=== PATIENT | female | born 1940 | race African-American/Black ===

== ENCOUNTER → 2018-04-15 | Outpatient (CLI) | payer OTHER ==
[~2018-04-15] MED LIST: ACTOS15 MG PO; ASPIRIN325 PO; CALCIUM500 MG PO; CLARITIN10 MG PO; COZAAR 50 MG TA50 M2 PO; FLONASE 0.05%50 MCG NASAL; GLUCOPHAGE XR500 MG PO; KELP150 MC1 PO; LANTUS SC; LANTUS SUBQ; LEVEMIR SUBQ; LISINOPRIL10 MG PO; LIVALO4 MG PO; MULTI-VITAMIN1 EAC1 PO; NORVASC 5 MG TAB5 MG PO; NORVASC10 MG PO; PLAVIX 75 MG TA75 M1 PO; RED YEAST RICE600 MG PO; SINGULAIR 10 MG10 M1 PO; ULTRAM 50MG TAB50 MG PO; VITAMIN D1000 UNI1 PO; [UNRECOGNIZED DRUG - OTHER]
== END ==
LOC: MRI 09:31
DX: S83.281A Other tear of lateral meniscus, current injury, right knee, initial encounter (principal); M25.461 Effusion, right knee; M71.21 Synovial cyst of popliteal space [Baker], right knee; G89.29 Other chronic pain; X58.XXXA Exposure to other specified factors, initial encounter; Y93.89 Activity, other specified; Y92.89 Other specified places as the place of occurrence of the external cause; Y99.8 Other external cause status

== ENCOUNTER 2019-05-30 23:50 | Emergency (ER) | payer OTHER ==
[~2019-05-30] VITALS: Ht 167.6 cm; Wt 78.0 kg
[2019-05-30 23:52] VITALS: BP 135/78
[2019-05-30] MEDS ORDERED: AMLODIPINE BESY10 MG PO (23:58)
[2019-05-30] MEDS ORDERED: LIVALO4 MG PO (23:59)
[2019-05-30] MEDS ORDERED: TRIGLIDE160 MG PO (23:59)
== END 2019-05-31 01:05 | disposition home or self-care (01) ==
LOC: ER 23:50
DX: I73.9 Peripheral vascular disease, unspecified (principal); R25.2 Cramp and spasm; I10 Essential (primary) hypertension; E11.9 Type 2 diabetes mellitus without complications; E78.5 Hyperlipidemia, unspecified; Z88.8 Allergy status to other drugs, medicaments and biological substances; Z79.899 Other long term (current) drug therapy; Z79.82 Long term (current) use of aspirin

== ENCOUNTER → 2019-10-05 | Outpatient (CLI) | payer OTHER ==
[~2019-10-05] MED LIST changes: +AMLODIPINE BESY10 MG PO; +TRIGLIDE160 MG PO
== END ==
LOC: SJCVCIMAG 09:37
PROVIDERS: ATTEND Nuclear Medicine Nuclear Cardiology
DX: I70.203 Unspecified atherosclerosis of native arteries of extremities, bilateral legs (principal); E11.51 Type 2 diabetes mellitus with diabetic peripheral angiopathy without gangrene; I25.119 Atherosclerotic heart disease of native coronary artery with unspecified angina pectoris; I10 Essential (primary) hypertension; E78.00 Pure hypercholesterolemia, unspecified

== ENCOUNTER → 2019-10-07 | Outpatient (CLI) | payer OTHER | LOC: SJCVCIMAG 07:38 | DX: I25.119 Atherosclerotic heart disease of native coronary artery with unspecified angina pectoris (principal); I10 Essential (primary) hypertension; E78.5 Hyperlipidemia, unspecified; I73.9 Peripheral vascular disease, unspecified; E11.9 Type 2 diabetes mellitus without complications; Z79.82 Long term (current) use of aspirin; Z79.899 Other long term (current) drug therapy ==

== ENCOUNTER → 2020-05-04 | Outpatient (CLI) | payer OTHER | LOC: SJCVCIMAG 08:36 | PROVIDERS: ATTEND Internal Medicine Cardiovascular Disease | DX: I65.23 Occlusion and stenosis of bilateral carotid arteries (principal); I70.203 Unspecified atherosclerosis of native arteries of extremities, bilateral legs; I10 Essential (primary) hypertension; E78.00 Pure hypercholesterolemia, unspecified; I77.9 Disorder of arteries and arterioles, unspecified; E11.9 Type 2 diabetes mellitus without complications; Z95.828 Presence of other vascular implants and grafts; Z79.899 Other long term (current) drug therapy ==

== ENCOUNTER → 2020-09-11 | Outpatient (CLI) | payer OTHER | LOC: CAT 09:02 | PROVIDERS: ATTEND Family Medicine | DX: R41.82 Altered mental status, unspecified (principal) ==

== ENCOUNTER → 2021-01-10 | Outpatient (CLI) | payer OTHER | LOC: BC 10:04 | PROVIDERS: ATTEND Family Medicine | DX: Z12.31 Encounter for screening mammogram for malignant neoplasm of breast (principal) ==

== ENCOUNTER → 2021-01-30 | Outpatient (CLI) | payer OTHER | LOC: SJCVC 09:56 → SJCVCIMAG 09:56 | PROVIDERS: ATTEND Internal Medicine Cardiovascular Disease | DX: I70.203 Unspecified atherosclerosis of native arteries of extremities, bilateral legs (principal); I10 Essential (primary) hypertension; E78.00 Pure hypercholesterolemia, unspecified; I73.9 Peripheral vascular disease, unspecified; I77.9 Disorder of arteries and arterioles, unspecified; E11.9 Type 2 diabetes mellitus without complications; Z79.82 Long term (current) use of aspirin; Z72.89 Other problems related to lifestyle; Z88.2 Allergy status to sulfonamides ==